=== PATIENT | female | born 2000 | race Caucasian/White ===

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

== ENCOUNTER 2024-02-02 11:25 | Outpatient (AMB) | payer OTHER, MEDICAID, SELFPAY ==
[2024-02-02 11:32] VITALS: BP 118/66; PULSE 92; TEMP 36.7; O2SAT 100; BMI 26.8
--- NOTE | 2024-02-02 11:32 | MHC.OFFWIV ---
Intake Vital Signs 02/02/24 11:32 Height 5 ft 4 in Weight 156 lb 2 oz BMI 26.8 BP 118/66 Blood Pressure Location Rt brachial Position Sitting Pulse 92 Pulse Source Pulse Oximeter Temp 98.1 F Temp Source Temporal Artery Scan Pulse Oximetry (%) 100 Oxygen Delivery Method Room Air Intake Visit Reasons: EP Flu like symptoms(masked) Intake Note: Pt presents to the office today for c/o flu like symptoms that started 3 days ago. Allergies Cephalosporins [CEPHALOSPORINS] Allergy (Unknown, Unverified 02/02/24 11:35) HIVES HPI HPI Comments History of Present Illness Details She presents with flu like symptoms Ongoing x 3 days She states subjective fever/chills + body aches, ST, cough Chest wall ache with coughing; no phlegm She said minimal congestion without ear pain No covid test taken She has taken dayquil, nyquil, cough medicine, cough drops, ibuprofen PFSH Medical History No known health problems Review of Systems Const Reports chills, Reports fatigue and Reports fever(s) ENT Reports nasal discharge Card Denies chest pain and Denies dyspnea Resp Reports cough and Denies dyspnea GI Denies abdominal pain and Denies vomiting Endo Reports fatigue Physical Exam Vital Signs: Last Vital Signs Temp 98.1 F 02/02/24 11:32 Pulse 92 02/02/24 11:32 BP 118/66 02/02/24 11:32 Pulse Ox 100 02/02/24 11:32 Oxygen Delivery Method Room Air 02/02/24 11:32 BMI result Body Mass Index 26.8 General: Non-toxic, NAD. Speaking full sentences. Skin: Warm dry throughout Eye: EOMI HENT: Airway patent. Uvula midline. No pharyngeal erythema or edema. 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 + rhinorrhea Bilateral canals clear. TM non-erythematous, non-bulging. No TM perforation or hemotympanum noted. Respiratory: CTA bilaterally. No wheezes, rales or rhonchi Cardiac: RRR. No murmur MSK: Full ROM extremities. Neurology: A/O. No aphasia or facial droop. Gait without abnormality Psych: Good mood and affect Assessment & Plan Assessment & Plan (1) Influenza-like illness: Code(s): J11.1 - Influenza due to unidentified influenza virus with other respiratory manifestations Plan: Patient seen and evaluated. Vitals stable Influenza/rsv/covid obtained Symptomatic management Work note given Patient gave verbal understanding and had no additional questions or concerns at time of discharge All questions answered Orders: Orders SARS-CoV2/FLU/RSV Today J11.1 - Influenza due to unidentified influenza virus with other respiratory manifestations Coding Level of Care Code Est Pt Level 3 (93320) Diagnoses Influenza-like illness J11.1
== END 2024-02-02 12:18 | disposition home or self-care (01) ==
PROVIDERS: PCP Hospitalist; Visit Provider Physician Assistant
DX: J11.1 Influenza due to unidentified influenza virus with other respiratory manifestations (principal)
CPT/HCPCS: 99213

== ENCOUNTER 2024-02-02 14:34 | Outpatient (REF) | payer OTHER, MEDICAID, SELFPAY ==
[2024-02-02 15:20] LABS: Influenza A PCR POSITIVE (Negative); Influenza B PCR NEGATIVE (Negative); Resp Syncy Virus RNA Qual PCR NEGATIVE (Negative); SARS COV2 PCR INHOUSE NEGATIVE (Negative)
== END 2024-02-02 14:35 | disposition home or self-care (01) ==
LOC: HO.LNP 14:34
PROVIDERS: Visit Provider Physician Assistant
DX: Z11.52 Encounter for screening for COVID-19 (principal); J11.1 Influenza due to unidentified influenza virus with other respiratory manifestations
CPT/HCPCS: 0241U

== ENCOUNTER 2025-06-19 11:17 | Outpatient (AMB) | payer OTHER, MEDICAID, SELFPAY ==
--- NOTE | 2025-06-19 11:48 | AM.OFFWIN_ITS ---
Intake Vital Signs 06/19/25 11:49 Height 5 ft 1 in Weight 191 lb BMI 36.1 BP 104/60 Blood Pressure Location Lt brachial Position Sitting Pulse 80 Pulse Source Pulse Oximeter Temp 98.5 F Temp Source Oral Pulse Oximetry (%) 98 Oxygen Delivery Method Room Air Intake Visit Reasons: EP-lt leg pain Intake Note: pt presents with left leg pain worsening with activity, states burning/cold and shocking pain starts from left anterior hip down to left ankle that is worse at the left knee, tight calf feeling- expresses concern for pinched nerve Patient : Yes Allergies Cephalosporins (CEPHALOSPORINS) Allergy (Unknown, Verified 06/19/25 11:49) HIVES Do you need a note to return to daycare/school/sports/work: Yes HPI HPI Comments History of Present Illness Details This is a 25 year old female, currently 25 weeks gestation presenting for evalaution of left leg pain that she has had for the past 5 weeks. The patient states that she has pain in her left lateral thigh that radiates to her left knee and her left calf. Patient describes the pain as a shooting sensation for which she has not taken any [id number] medications. Patient denies having any chest pain, cough or shortness of breath. She describes her pain as ?an icy hot pain?. Patient saw her primary care physician who was going to schedule physical therapy evaluation for her. Patient has not yet had this intake scheduled. She denies having any back pain, urinary frequency or dysuria. [facility], [facility] Medical History No known health problems Review of Systems Const All systems reviewed & are unremarkable except as noted in HPI and below Denies body aches, Denies chills, Denies fatigue and Denies fever(s) Card Denies chest pain and Denies dyspnea Resp Denies cough, Denies hemoptysis and Denies dyspnea Denies dysuria and Denies urinary urgency Musc Denies numbness, Reports radiating pain into limb (LLE) and Denies tingling Skin/Breast Reports system reviewed and no additional complaints, except as documented Neuro Reports no additional complaints, Denies numbness and Denies tingling Psych Reports no additional complaints Endo Reports no additional complaints and Denies fatigue Aller/Immun Reports no additional complaints Physical Exam Vital Signs: Last Vital Signs Temp 98.5 F 06/19/25 11:49 Pulse 80 06/19/25 11:49 BP 104/60 06/19/25 11:49 Pulse Ox 98 06/19/25 11:49 Oxygen Delivery Method Room Air 06/19/25 11:49 BMI result Body Mass Index 36.1 Const General: cooperative, healthy appearing (gravid), comfortable, well developed, alert, awake and Physically active; No acute distress Nutritional Appearance: other (gravid) Orientation/consciousness: patient oriented x3 Limitations: no limitations General: Yes no CVA tenderness Back/Spine/Pelvis Back: no CVA tenderness Thoracic/Lumbar Spine: thoracic and lumbar spine normal to inspection, thoraco- lumbar ROM normal, No paraspinal muscle tenderness, No thoracic spinal tenderness, No lumbar spinal tenderness and No straight leg raise positive Sacroiliac joints: bilaterally nontender Skin General skin exam: no rashes or lesions noted Neuro General: patient oriented x3, gait normal, tone normal, moves all extremities and Normal light touch and pain sensation Cognition (Neuro): normal cognition Gait exam (Neuro): Normal gait present Motor exam (neuro): 5/5 motor strength present throughout (lower extremities bilaterally) Extrem Right lower extremity: normal to inspection, full ROM, no joint enlargement, hip/thigh Details: normal to inspection and abnormal to inspection; no tendernes s, no swelling and no deformity and lower leg Details: normal to inspection; no erythema, no tenderness, no pitting edema and no non-pitting edema Left lower extremity: normal to inspection, full ROM, hip/thigh Details: tenderness Location: of the proximal upper leg Location: laterally and normal ROM; no deformity, knee Details: normal to inspection, normal ROM and knee lig ament exam normal; no tenderness, no swelling, no deformity and no unusual warmth, lower leg Details: normal to inspection and tenderness Location: of the posterior calf; not of the proximal tibia, not of the proximal fibula and not of the midshaft tibia; no erythema and no deformity and ankle Details: normal to inspection and no edema; no swelling; no edema Psych Appearance: grossly normal Mental Status: mental status grossly normal Insight: Good insight present (Psych) Judgement: Good judgement present (Psych) Assessment & Plan Assessment & Plan (1) Lumbar radiculopathy: Comment: Patient's symptoms most likely related to a left lumbar radiculopathy however given her gravid state and left calf pain, a DVT can not be exclusively ruled out. Venous duplex ultrasound imaging of the left lower extremity will be obtained. Patient is encouraged to follow up with her primary care provider regarding the referral for physical therapy; Tylenol OTC as needed. Code(s): M54.16 - Radiculopathy, lumbar region Plan: Stat duplex US of LLE, Tylenol as needed for discomfort, PT as ordered by PCP. Orders: Orders US venous duplex LE LT Today M79.662 - Pain in left lower leg Medications: Discontinued oseltamivir (Tamiflu) Discontinued Reason: Patient Completed Course 75 mg PO BID 5 days 10 caps 0RF J10.1 - Influenza due to other identified influenza virus with other respiratory manifestations Coding Level of Care Code Est Pt Level 3 (61656) Diagnoses Lumbar radiculopathy M54.16 Time Spent (min) 25
[2025-06-19 11:49] VITALS: BP 104/60; PULSE 80; TEMP 36.9; O2SAT 98; BMI 36.1
--- OUTSIDE RECORDS SUMMARY | 2025-06-19 12:11 | XMS_ITS | Encounter Summary ---
Author Organization [facility] Address [address] [place] [id number] Phone Care Team Providers Care Medical Record Consultant Name Role Phone Babita Botello MD Primary Care Provider [phone] Encounter Details Date Type Department Care Team (Late st Contact Info) Description 08/12/2010 Documentation EM Family Medicine [address] [place] [address] Family Medicine, Physician [address] [place], [place] [phone] Social History Tobacco Use Types Packs/Day Years Used Date Smoking Tobacco: Never Assessed Comments Unknown Sex and Gender Information Value Date Recorded Sex Assigned at Not on file Legal Sex Female 5:11 PM EDT Gender Identity Not on file Sexual Orientation Not on file documented as of this encounter Plan of Treatment Not on file documented as of this encounter Visit Diagnoses Not on filedocumented in this encounter Care Teams Medical Record Consultant Relationship Specialty Start Date End Date Babita Botello MD [address] [place] [address] HARSHA Ortega [address] PCP - General 06/04/17 12/03/22 documented as of this encounter
--- OUTSIDE RECORDS SUMMARY | 2025-06-19 12:11 | XMS_ITS | Clinical Summary ---
Author Organization [facility] Address [address] [place] [address] Phone Care Team Providers Care Yarn Handler Name Role Phone Physician, No Pcp Primary Care Provider Unavaila ble Allergies Active Allergy Reactions Criticality Noted Date Comments Cephalosporins Hives 12/19/2024 Social History Tobacco Use Types Packs/Day Years Used Date Smoking Tobacco: Never Smokeless Tobacco: Never Tobacco Cessation:Counseling Given: Not Answered Alcohol Use Standard Drinks/Week Comments Not Currently 0 (1 standard drink = 0.6 oz pur e alcohol) Comments Unknown Sex and Gender Information Value Date Recorded Sex Assigned at Female 12/19/2024 4:17 PM EST Legal Sex Female 3:09 PM EST Gender Identity Female 12/19/2024 4:17 PM EST Sexual Orientation Straight 12/19/2024 4: 17 PM EST Obstetrics History Last Filed Vital Signs Vital Sign Reading Time Taken Comments Blood Pressure 120/64 12/19/2024 3:16 PM EST Pulse 61 12/19/2024 3:16 PM EST Temperature 36.7 C (98.1 F) 12/19/2024 3:16 PM EST Respiratory Rate 18 12/19/2024 3:16 PM EST Oxygen Saturation 97% 12/19/2024 3:16 PM EST Inhaled Oxygen Concentration - - Weight 70.3 kg (155 lb) 12/19/2024 3:16 PM EST Height 154.9 cm (5' 1 ) 12/19/2024 3:16 PM EST Body Mass Index 29.29 12/19/2024 3:16 PM EST Plan of Treatment Health Maintenance Due Date Last Done Comments Gonorrhea/Chlamydia Screening 2002 Meningococcal B Vaccine (1 of 2 - Standard) 2018 Cervical Cancer Screening: Pap Smear 2023 DTaP,Tdap,and Td Vaccines (7 - Td or Tdap) 01/13/2024 01/12/2014, 02/18/2006, 06/05/2003, Additional history exists COVID-19 Vaccine ( season) 2024 Depression Screening 10/25/2024 HIV Screening 12/20/2024 Hepatitis C Screening 12/20/2024 Social Influencers of Health Screening 12/20/2024 Influenza Vaccine (#1) 2025 9, 06/21/2017, 08/22/2014, Additional history exists Hepatitis B Vaccines Completed 01/18/2003, 2002, 2002 HIB Vaccines Completed 06/05/2003, 08/25, 2002, Additional history exists IPV Vaccines Completed 02/18/2006, 05/25, 2002, Additional history exists MMR Vaccines Completed 02/18/2006, 06/05/2003 Varicella Vaccines Completed 05/05/2007, 05/29/2004 HPV Vaccines Completed 03/03/2016, 12/25, 01/12/2014 Hepatitis A Vaccines Completed 03/03/2016, 01/22/20 15 Meningococcal ACWY Vaccine Completed 10/28/2018, Pneumococcal Vaccine: Pediatrics (0 to 5 Years) and At-Risk Patients (6 to 49 Years) Aged Out No longer eligible based on patient's age to complete this topic RSV Immunization Patients Under 20 months Aged Out No longer eligible based on patient's age to complete this topic Insurance [facility] [place] [facility] [address] [place] [address] Care Teams Yarn Handler Relationship Specialty Start Date End Date Physician, No Pcp PCP - General 12/19/24
--- OUTSIDE RECORDS SUMMARY | 2025-06-19 12:11 | XMS_ITS | Encounter Summary ---
Author Organization [facility] Address [address] [place] [address] Phone Care Team Providers Care Rn Pain Management Name Role Phone Babita Botello MD Primary Care Provider [phone] Encounter Details Date Type Department Care Team (Late st Contact Info) Description 06/10/2017 Conversion Encounter [facility] [address] [place], [place] [phone] Social History Tobacco Use Types Packs/Day Years [...] on filedocumented in this encounter Care Teams Rn Pain Management Relationship Specialty Start Date End Date Babita Botello MD [address] [facility] [address] PCP - General 06/04/17 12/03/22 documented as of this encounter
--- OUTSIDE RECORDS SUMMARY | 2025-06-19 12:11 | XMS_ITS | Encounter Summary ---
Author Organization [facility] Address [address] [place] [phone] Phone Care Team Providers Care Bus Driver/Monitor Name Role Phone Babita Botello MD Primary Care Provider [phone] Encounter Details Date Type Department Care Team (Late st Contact Info) Description 04/29/2017 Documentation EM Family Medicine [address] [place] [address] Family Medicine, Physician [address] [place], [place] [phone] Social History Tobacco Use Types Packs/Day Years [...] on filedocumented in this encounter Care Teams Bus Driver/Monitor Relationship Specialty Start Date End Date Babita Botello MD [address] [place] [address] HARSHA Ortega [id number] PCP - General 06/04/17 12/03/22 documented as of this encounter
--- OUTSIDE RECORDS SUMMARY | 2025-06-19 12:11 | XMS_ITS | Encounter Summary ---
Author Organization [facility] Address [address] [place] [address] Phone Care Team Providers Care Gericare Aide Name Role Phone Babita Botello MD Primary Care Provider [phone] Encounter Details Date Type Department Care Team (Late st Contact Info) Description 02/15/2017 Documentation EM Family Medicine [address] [place] [address] Family Medicine, Physician [address] [place], [place] [phone] Social History Tobacco Use Types Packs/Day Years [...] on filedocumented in this encounter Care Teams Gericare Aide Relationship Specialty Start Date End Date Babita Botello MD [address] [place] [address] HARSHA Ortega [address] PCP - General 06/04/17 12/03/22 documented as of this encounter
--- OUTSIDE RECORDS SUMMARY | 2025-06-19 12:11 | XMS_ITS | Clinical Summary ---
Author Organization [facility] Address [address] [facility] [address] [place] [address] Phone Care Team Providers Care Catering Chef Name Role Phone Pcp, Unknown Primary Care Provider Unavailabl e Allergies No known active allergies Medications amoxicillin (AMOXIL) 500 MG capsule Take 1 capsule (500 mg total) by mouth 2 (two) times a day. 20 capsule 02/19/2022 Active Active Problems No known active problems Social History Tobacco Use Types Packs/Day Years Used Date Smoking Tobacco: Never Assessed Education Answer Date Recorded Are you interested in more education? Not on clint e 02/19/2023 Are you concerned about learning? Not on file 02/19/2023 No 02/19/2023 No 02/19/2023 Digital Access Answer Date Recorded No 03/23/2023 No 03/23/2023 Reliable internet access at home? Not on file 03/23/2023 Device with a working camera? Not on file Comments Unknown Sex and Gender Information Value Date Recorded Sex Assigned at Female 02/19/2022 4:31 PM EDT Legal Sex Female 11:27 AM EST Gender Identity Female 02/19/2022 4:31 PM EDT Sexual Orientation Not on file Last Filed Vital Signs Vital Sign Reading Time Taken Comments Blood Pressure 110/72 02/19/2022 8:50 PM EDT Pulse 85 02/19/2022 8:50 PM EDT Temperature 36.6 C (97.9 F) 02/19/2022 4:29 PM EDT Respiratory Rate 18 02/19/2022 8:50 PM EDT Oxygen Saturation 98% 02/19/2022 8:50 PM EDT Inhaled Oxygen Concentration - - Weight 84.8 kg (187 lb) 02/19/2022 4:29 PM EDT Height 154.9 cm (5' 1 ) 02/19/2022 4:29 PM EDT Body Mass Index 35.33 02/19/2022 4:29 PM EDT Plan of Treatment Not on file Medical Devices Not on file Insurance [employer] O POS EPO A[employer] O [place] [address] [place], [place] [address]O POS EPO O POS EPO AENA O POS EPO [employer] O POS EPO A[employer] O POS EPO O POS EPO AET[employer] O [place] [address] [place], [place] [address]O [place] [address] [place], [place] [address]O [facility] O POS EPO AETNA O [facility] [place] [address] [place], [place] [address]O POS EPO Care Teams Catering Chef Relationship Specialty Start Date End Date Pcp, Unknown PCP - General 02/19/22 Additional Source Comments The information contained in this document represents components of the legal health record. It is not the complete legal health record.[facility]
--- OUTSIDE RECORDS SUMMARY | 2025-06-19 12:11 | XMS_ITS | Encounter Summary ---
Author Organization [facility] Address [address] [place] [address] Phone Care Team Providers Care Ordnance Keeper Name Role Phone Pcp, Unknown Primary Care Provider Unavailabl e Encounter Details Date Type Department Care Team (Latest Contact Info) Description 12/06/2018 Transcribe Orders [facility] [address] [place] [address] [place] [address] Mili Cordova, JONATHAN [address] [place] [address] Eating disorder, unspecified (Primary Dx) Social History Tobacco Use Types Packs/Day Years Used Date Smoking Tobacco: Never Assessed Comments Unknown Sex and Gender Information Value Date Recorded Sex Assigned at Female 02/19/2022 4:31 PM EDT Legal Sex Female 11:27 AM EST Gender Identity Female 02/19/2022 4:31 PM EDT Sexual Orientation Not on file documented as of this encounter Plan of Treatment Not on file documented as of this encounter Results * (ABNORMAL) Urine culture (12/06/2018 10:02 AM EST) Specimen Source/ Description URINE CLEAN CATCH URINE [facility] Special Requests None [facility] GRAM STAIN NO ORGANISMS SEEN [facility] Culture/Test 10,000 to 100,000 colony forming units per ml MIXED KYLEE (3 OR MORE COLONY TYPES) Culture indicates contamination . Please resubmit if necessary.(A) [facility] Report Status 12/07/2018 FINAL [facility] Urine (Urine) 12/06/2018 10: 02 AM EST 12/06/2018 10:14 AM EST Mili Cordova NP MICROBIOLOGY - GENERA L ORDERABLES Final Result Performing Organization Address [facility] Co de Phone Number [address] [address] * Zinc (12/06/2018 10:02 AM EST) ZINC 0.74 0.66 - 1.10 mcg/mL [facility] Comment: (NOTE) ADDITIONAL INFORMATION This test was developed and its performance characteristics determined by [facility] in a manner consistent with CLIA requirements. This test has not been cleared or approved by the U.S. Food and Drug Administration. Blood 12/06/2018 10:0 2 AM EST 12/06/2018 10:13 AM EST Mili Cordova NP LAB BLOOD ORDERABLES Final Result Performing Organization Address [facility] de Phone Number [facility] [address] [place] [address] * Vitamin B12 (12/06/2018 10:02 AM EST) VITAMIN B12 392 232 - 1,245 pg/mL [facility] Blood 12/06/2018 10:0 2 AM EST 12/06/2018 10:13 AM EST Mili Cordova NP LAB BLOOD ORDERABLES Final Result Performing Organization Address [facility] Co de Phone Number [address] [address] * TSH (12/06/2018 10:02 AM EST) TSH 1.97 0.27 - 4.20 uIU/mL [facility] Blood 12/06/2018 10:0 2 AM EST 12/06/2018 10:13 AM EST Mili Cordova NP LAB BLOOD ORDERABLES Final Result Performing Organization Address [facility] Co de Phone Number [address] [address] * Phosphorus (12/06/2018 10:02 AM EST) PHOSPHORUS 3.2 2.7 - 4.5 mg/dL [facility] Blood 12/06/2018 10:0 2 AM EST 12/06/2018 10:13 AM EST Mili Cordova NP LAB BLOOD ORDERABLES Final Result Performing Organization Address [facility] Phone Number [address] [address] * Magnesium (12/06/2018 10:02 AM EST) MAGNESIUM 2.3 1.6 - 2.6 mg/dL [facility] Blood 12/06/2018 10:0 2 AM EST 12/06/2018 10:13 AM EST Mili Cordova NP LAB BLOOD ORDERABLES Final Result Performing Organization Address [facility] de Phone Number [address] [address] * (ABNORMAL) Lipid panel (12/06/2018 10:02 AM EST) HDL 44 mg/dL [facility] Comment: Interpretation <40 mg/dL: Low HDL cholesterol (major risk factor for CHD) Greater than or equal to 60 mg/dL: High HDL cholesterol ( negative risk factor for CHD) HDL - cholesterol is affected by a number of factors, e.g. smoking, excerise, hormones, sex and age. CHOLESTEROL 132 0 - 169 mg/dL [facility] Comment: Pediatric Reference Ranges for 2 to 18 years Acceptable: Less than 170 mg/dL Borderline: 170 - 199 mg/dL High: Greater than or equal to 200 mg/dL TRIGLYCERIDES 126 30 - 160 mg/dL [facility] LDL 63 50 - 129 mg/dL [facility] Comment: LDL levels in terms of risk for coronary heart disease: <100 mg/dL: Optimal 100-129 mg/dL: Near or above optimal 130-159 mg/dL: Borderline high 160-189 mg/dL: High >190 mg/dL: Very High CARDIAC RISK RATIO 3.0(L) 3.3 - 4.4 [facility] Blood 12/06/2018 10:0 2 AM EST 12/06/2018 10:13 AM EST Mili Cordova NP LAB BLOOD ORDERABLES Final Result Performing Organization Address [facility]/ZIP Co de Phone Number [address] [address] * Lipase (12/06/2018 10:02 AM EST) LIPASE 21 16 - 63 U/L [facility] Blood 12/06/2018 10:0 2 AM EST 12/06/2018 10:13 AM EST Mili Cordova NP LAB BLOOD ORDERABLES Final Result Performing Organization Address [facility] Co de Phone Number [address] [address] * (ABNORMAL) 25-OH vitamin D (12/06/2018 10:02 AM EST) 25 OH VIT D (TOTAL) 28(L) 30 - 60 ng/mL [facility] Blood 12/06/2018 10:0 2 AM EST 12/06/2018 10:13 AM EST Mili Cordova NP LAB BLOOD ORDERABLES Final Result Performing Organization Address [facility]/ZIP Co de Phone Number [address] [address] * Amylase (12/06/2018 10:02 AM EST) AMYLASE 82 28 - 100 U/L [facility] Blood 12/06/2018 10:0 2 AM EST 12/06/2018 10:13 AM EST Mili Cordova ADMISSION SPECIALIST LAB BLOOD ORDERABLES Final Result [address] [address] * Bilirubin, direct (12/06/2018 10:02 AM EST) DIRECT BILIRUBIN <0.2 0 - 0.3 mg/dL [facility] Blood 12/06/2018 10:0 2 AM EST 12/06/2018 10:13 AM EST Mili Cordova ADMISSION SPECIALIST LAB BLOOD ORDERABLES Final Result Performing Organization Address City/[facility]/ZIP Co de Phone Number [address] [address] * CBC and differential (12/06/2018 10:02 AM EST) WBC 5.59 3.40 - 11.20 K/uL [facility] RBC 4.12 3.80 - 4.80 M/uL [facility] HGB 12.7 12.0 - 15.0 g/dL [facility] HCT 37.7 36.0 - 46.0 % [facility] PLT 260 130 - 400 K/uL [facility] MCV 91.5 79.0 - 98.0 fL [facility] MCH 30.8 25.0 - 35.0 pg [facility] MCHC 33.7 31.0 - 37.0 g/dL [facility] RDW 12.5 10.8 - 14.6 % [facility] MPV 11.1 9.4 - 12.4 fl [facility] NRBC 0.00 0.00 /100 WBCs [facility] ABSOLUTE NRBC 0.00 0.00 K/uL [facility] DIFF METHOD Auto [facility] NEUTS 64.1 45.30 - 77.70 % [facility] LYMPHS 26.1 12.30 - 39.70 % [facility] MONOS 8.4 4.10 - 12.80 % [facility] EOS 0.7 0 - 7.2 % [facility] BASOS 0.5 0 - 2.80 % [facility] Granulocytes, immature (%) 0.2 0.0 - 0.9 % [facility] ABSOLUTE NEUTS 3.58 1.40 - 7.70 K/uL [facility] ABSOLUTE LYMPHS 1.46 0.60 - 3.20 K/uL [facility] ABSOLUTE MONOS 0.47 0.11 - 0.59 K/uL [facility] ABSOLUTE EOS 0.04 0.01 - 0.50 K/uL [facility] ABSOLUTE BASOS 0.03 0.00 - 0.08 K/uL [facility] Granulocytes, immature 0.01 0.00 - 0.05 K/uL [facility] Blood 12/06/2018 10:0 2 AM EST 12/06/2018 10:13 AM EST us Mili Cordova NP LAB BLOOD ORDERABLES Final Result Performing Organization Address City/State/[facility] Co de Phone Number [address] [address] * Comprehensive metabolic panel (12/06/2018 10:02 AM EST) SODIUM 140 133 - 146 mmol/L [facility] POTASSIUM 4.3 3.3 - 5.1 mmol/L [facility] CHLORIDE 103 96 - 108 mmol/L [facility] CO2 24 21 - 35 mmol/L [facility] BUN 13 6 - 19 mg/dL [facility] CREATININE 0.80 0.5 - 1.5 mg/dL [facility] GLUCOSE 85 70 - 99 mg/dL [facility] ALBUMIN 4.0 3.9 - 4.8 g/dL [facility] TOTAL PROTEIN 7.2 6.5 - 8.0 g/dL [facility] CALCIUM 9.2 8.4 - 10.3 mg/dL [facility] ALKALINE PHOSPHATASE 64 39 - 117 U/L [facility] TOTAL BILIRUBIN 0.4 0.0 - 1.2 mg/dL [facility] AST 16 0 - 37 U/L [facility] ALT 11 0 - 40 U/L [facility] GLOBULIN 3.2 1 - 4.8 g/dL [facility] EGFR Estimated GFR not calculated for patients <18 years old. mL/min/1. 73m2 [facility] ANION GAP 17 10 - 20 mmol/L [facility] Blood 12/06/2018 10:0 2 AM EST 12/06/2018 10:13 AM EST Mili Cordova NP LAB BLOOD ORDERABLES Final Result Performing Organization Address [facility] Co de Phone Number [address] [address] * Folate (12/06/2018 10:02 AM EST) FOLIC ACID 12.3 4.2 - 19.9 ng/mL [facility] Blood 12/06/2018 10:0 2 AM EST 12/06/2018 10:13 AM EST Mili Cordova NP LAB BLOOD ORDERABLES Final Result Performing Organization Address [facility] Co de Phone Number [address] [address] * (ABNORMAL) Ferritin (12/06/2018 10:02 AM EST) FERRITIN 160(H) 13 - 150 ug/L [facility] Blood 12/06/2018 10:0 2 AM EST 12/06/2018 10:13 AM EST Mili oCrdova NP LAB BLOOD ORDERABLES Final Result Performing Organization Address [facility]/ZIP Co de Phone Number [address] [address] * HCG (quantitative blood), (12/06/2018 10:02 AM EST) HCG BETA <0.1 mIU/mL [facility] Comment: Interpretation: FEMALE: Negative: Less than or equal to 1 mIU/mL. 4 Weeks Post Conception: 9.5 - 750 mIU/mL. 12 Weeks Post Conception: [id number] - [address] mIU/mL. Blood 12/06/2018 10:0 2 AM EST 12/06/2018 10:13 AM EST Mili Cordova ADMISSION SPECIALIST LAB BLOOD ORDERABLES Final Result Performing Organization Address City/[facility] Co de Phone Number [address] [address] * Iron (12/06/2018 10:02 AM EST) IRON 140 30 - 160 ug/dL [facility] Blood 12/06/2018 10:0 2 AM EST 12/06/2018 10:13 AM EST Mili Cordova ADMISSION SPECIALIST LAB BLOOD ORDERABLES Final Result Performing Organization Address [facility] Co de Phone Number [address] [address] documented in this encounter Visit Diagnoses Diagnosis Eating disorder, unspecified- Primary documented in this encounter Additional Health Concerns Infection Onset Date Last Indicated Resolved Time CoV-Risk 02/19/2022 02/19/2022 03/02/2022 1:24 AM EDT documented as of this encounter Care Teams Ordnance Keeper Relationship Specialty Start Date End Date Pcp, Unknown PCP - General 02/19/22 documented as of this encounter Additional Source Comments The information contained in this document represents components of the legal health record. It is not the complete legal health record.[facility]
--- OUTSIDE RECORDS SUMMARY | 2025-06-19 12:12 | XMS_ITS | Clinical Summary ---
Author Organization [facility] Address [address] [place] [phone] Phone Care Team Providers Care Stock Wetter Name Role Phone Unavailable Primary Care Provider Unavailabl e Allergies Active Allergy Reactions Criticality Noted Date Comments Cefuroxime Rash Low Medications Vitamin D, Cholecalciferol , 1000 units capsule TK 1 C PO D WF 1 8 Active traZODone 50 MG tablet TK 1 T PO D HS 1 8 Active melatonin (KP MELATONIN) tablet Take by mouth. 2 Active ISIBLOOM 0.15-30 MG-MCG per tablet TK 1 T PO D TK 21 DAYS OF ACTIVE TS THEN SKIP PLACEBOS AND. START THE NEXT PACK 7 8 Active zinc sulfate 220 (50 Zn) MG capsule Take 220 mg by mouth once daily. 0 9 Active GAVILAX powder MIX 17 GRAMS WITH WATER AND DRINK TWICE DAILY 0 9 Active Multiple Vitamin (DAILY-FABI) tablet Take 1 tablet by mouth once daily. 3 9 Active STOOL SOFTENER 100 MG capsule TAKE 2 CAPSULES BY MOUTH EVERY DAY NEEDED FOR CONSTIPATION 0 9 Active Active Problems Problem Noted Date Diagnosed Date Major depressive disorder with single episode Overview (04/14/2019): Followed by Melinda Monson and referred back to Dr. Abilio Arriaga Obsessive compulsive disorder 04/14/2019 Disordered eating 12/05/2018 Overview (04/14/2019): Followed by adolescent medicine and Melinda Monson Self-injurious behavior 10/28/2018 Assessment & Plan (11/01/2018 3:02 PM EST): Discussed with patient and mom about new cutting simms; mom unaware but will be mindful and discuss with therapist; denis denies SI but discussed suggestions/recommendations for her Acne vulgaris 06/21/2017 Menorrhagia with irregular cycle 06/21/2017 Assessment & Plan (10/28/2018 2:37 PM EST): On ocps per [facility] for heavy bleeding and iron deficiency Other iron deficiency anemias 06/21/2017 Assessment & Plan (10/28/2018 2:47 PM EST): On ocps and was on iron and vitamin d Not eating well at all Last time checked was about 2 months ago and was fine Has f/u Wednesday with them and plans likely to recheck So I told her today probably ok off of the iron but use a mvi with iron Attention deficit hyperactiv ity disorder (ADHD), combined type 06/16/2012 Generalized anxiety disorder 02/06/2011 Assessment & Plan (10/28/2018 2:48 PM EST): Still taking trazodone and melatonin at night; no longer on bupropion or dexedrine Immunizations Immunization Administration Dates Next Due DTaP 5 02/18/2006, 3,2002,06/14,2002 HPV Vaccine 9 Valent 03/03/2016 HPV, Quadrivalent 01/21/2015,01/12/2014 Hep A, ped/adol 03/03/2016,01/21/2015 Hep B, ped/adol 01/18/2003,2002,2002 Hib (PRP-T) 06/05/2003, 2,2002,04/11 IPV 02/18/2006, 3,2002,04/11 Influenza Split 06/16/2012 Influenza, injectable, quadrivalent 08/22/2014 Influenza, injectable, quadr ivalent, preservative free 10/28/2018,06/21/2017 Influenza, injectable, trivalent 07/26/2009,09/25 MMR 02/18/2006,06/05/2003 Meningococcal Conj (Menactra) MCV4P 10/28/2018,0 01/12/2014 Tdap 01/12/2014 Varicella 05/05/2007,05/29/2004 Family History Relation Name Status Comments Brother Ozzie Rivas Alive Brother: Bipo lar disorder, Asthma,generalized anxiety, Alive and well, Bipolar disorder Father Father: Hyperli pidemia,GERD, Heart disease Mother Alive Mother: Hypothy roidism,anemia Other Family history of Hyperlipidemia, Family history of Obesity Social History Tobacco Use Types Packs/Day Years Used Date Smoking Tobacco: Never Smokeless Tobacco: Never Tobacco Cessation:Counseling Given: Yes Comments:Never smoker Alcohol Use Standard Drinks/Week Comments No 0 (1 standard drink = 0.6 oz pur e alcohol) Hunger/Food Answer Date Recorded No 07/20/2020 Stable Housing Answer Date Recorded No 07/20/2020 Transportation Concerns Answer Date Rec orded No 07/20/2020 Hazards in Home Answer Date Recorded No 09/07/2020 Financing Utilities Answer Date Recorde d Yes 09/07/2020 Safety at Home Answer Date Recorded No 09/07/2020 Outside Support Answer Date Recorded No 09/07/2020 Understanding Health Concerns Answer Da te Recorded No 09/07/2020 Financing Health Concerns Answer Date R ecorded No 09/07/2020 Missing School or Work Answer Date Merlin rded No 09/07/2020 Comments Unknown Sex and Gender Information Value Date Recorded Sex Assigned at Not on file Legal Sex Female 5:11 PM EDT Gender Identity Not on file Sexual Orientation Not on file Last Filed Vital Signs Vital Sign Reading Time Taken Comments Blood Pressure 100/65 12/05/2018 2:25 PM EST Pulse 59 12/05/2018 2:25 PM EST Temperature 36.3 C (97.3 F) 12/05/2018 2:25 PM EST Respiratory Rate - - Oxygen Saturation - - Inhaled Oxygen Concentration - - Weight 73.4 kg (161 lb 12.8 oz) 12/05/2018 2:25 PM EST Height 153.7 cm (5' 0.5 ) 12/05/2018 2:25 PM EST Body Mass Index 31.08 12/05/2018 2:25 PM EST Plan of Treatment Health Maintenance Due Date Last Done Comments Men B Vaccine (1 of 2 - Standard) 2018 DTaP,Tdap,and Td Vaccines (7 - Td or Tdap) 01/13/2024 01/12/2014, 02/18/2006, 06/05/2003, Additional history exists COVID-19 Vaccine ( season) 2024 05/24/2021, 04/26/2021 Influenza Vaccines (#1) 2025 07/15/20 20, 10/28/2018, 06/21/2017, Additional history exists Hepatitis B Vaccines Completed 01/18/2003, 2002, 2002 HIB Vaccines Completed 06/05/2003, 08/25, 2002, Additional history exists IPV Vaccines Completed 02/18/2006, 05/25, 2002, Additional history exists MMR Vaccines Completed 02/18/2006, 06/05/2003 Varicella Vaccines Completed 05/05/2007, 05/29/2004 HPV Vaccines Completed 03/03/2016, 12/25, 01/12/2014 Hepatitis A Vaccines Completed 03/03/2016, 01/22/20 15 Meningococcal Vaccine Completed 10/28/2018, 014 Pneumococcal Vaccine Aged Out No long er eligible based on patient's age to complete this topic Procedures * Due to [place] [employer] law, this organization might not be sharing sensitive test results. Procedure Name Priority Date/Time Associated Diagnosis Comments CHLAMYDIA AND GONORRHEA, AMPLIFIED Routine 10/28/2018 3:23 PM EST Screening examination for bacterial and spirochetal disease from Last 3 Months or Most Recently Relevant to Health Maintenance Results * Due to [place] [employer] law, this organization might not be sharing sensitive test results. * Chlamydia and Gonorrhea, Amplified (10/28/2018 3:23 PM EST) Chlamydia Trachomatis, DNA Probe NEGATIVE (NEG) [facility] Comment: No Chlamydia Trachomatis RNA detected in this patient's sample (REFERENCE RANGE/NORMAL VALUE: NOT DETECTED) Note: This test uses speech scientist- mediated amplification method to detect rRNA from C. Trachomatis URINE GC AMP PROBE NEGATIVE (NEG) [facility] Comment: No Neisseria Gonorrhoeae RNA detected in this patient's sample (REFERENCE RANGE/NORMAL VALUE: NOT DETECTED) NOTE: This test uses speech scientist-mediated amplification method to detect rRNA from N.Gonorrhoeae. A negative result does not preclude infection. In the case of a negative urine result, testing of an endocervical(female) or urethral (male) specimen is recommended if there is high clinical suspicion of infection. Due to very high sensitivity of Nucleic Acid Amplification Test, false positive results may occur. Therefore, specimen handling is extremely important. In patients in whom the disease is unlikely, additional sample for testing should be considered after an initial positive result. The performance characteristics of this test have not been evaluated in children. The Aptima Combo2 assay is not intended for the evaluation of suspected sexual abuse or for other medico-legal indications. The ordering provider should assess if the patient had consensual sex without risk of sexual abuse. Consult the [facility] if needed. Contact phone number . Therapeutic failure or success cannot be determined with the Aptima Combo2 assay since nucleic acid may persist following appropriate antimicrobial therapy. The Centers for Disease Control and Prevention (CDC) recommends confirmatory retesting using culture or a different nucleic acid amplification test when positive results occur, if indicated. Testing performed or reported by [facility], a Service of [facility], [facility] [place] [address] [place] [id number] Digna Perrin MD, Cloth Bleaching Range Tender Urine 10/28/2018 3:23 PM EST 10/28/2018 9:49 PM EST us Babita Botello MD LAB MICROBIOLOGY - GENERAL ORD ERABLES Final Result [facility] from Last 3 Months or Most Recently Relevant to Health Maintenance
== END 2025-06-19 13:09 | disposition home or self-care (01) ==
PROVIDERS: PCP Hospitalist; Visit Provider Physician Assistant
DX: M54.16 Radiculopathy, lumbar region (principal)

== ENCOUNTER 2025-06-20 10:28 | Outpatient (REF) | payer OTHER, MEDICAID, SELFPAY ==
--- NOTE | ~2025-06-20 | US_ITS ---
EXAMINATION: US TRIPLEX LOWER EXTREMITY, LEFT CLINICAL INFORMATION: Pain, left lower extremity. COMPARISON: None available. TECHNIQUE: Color-flow triplex imaging with spectral analysis and compression Doppler were performed on the left lower extremity. FINDINGS: Respiratory variation, normal compression and augmented flow are demonstrated in the interrogated left common femoral vein, superficial femoral vein, profunda femoral vein, popliteal vein and midcalf peroneal and posterior tibial venous segments.. There is no Grissom's cyst. US/US venous duplex LE LT IMPRESSION: No acute deep venous thrombosis interrogated veins, left lower extremity. Negative for DVT. Electronically signed by: Jayce Donahue MD 06/20/2025 11:01 AM EDT
--- OUTSIDE RECORDS SUMMARY | 2025-06-20 11:20 | XMS_ITS | Clinical Summary ---
Author Organization [facility] Address [address] [place] [address] Phone Care Team Providers Care Riding Teacher Name Role Phone Pcp, Unknown Primary Care [...] O POS EPO [employer] O POS EPO [address] [place], [place] [address]O POS EPO O POS EPO [employer]ENA O POS EPO [employer] O POS EPO [employer] O POS EPO O POS EPO [employer] O POS EPO [address] [place], [place] [address]O [place] [address] [place], [place] [address]O [facility] O POS EPO AET[employer] [facility] [address] [place], [place] [address]O POS EPO Care Teams Riding Teacher Relationship Specialty Start Date End Date Pcp, Unknown PCP - General 02/19/22 Additional Source Comments The information contained in this document represents components of the legal health record. It is not the complete legal health record.[facility]
--- OUTSIDE RECORDS SUMMARY | 2025-06-20 11:20 | XMS_ITS | Encounter Summary ---
Author Organization [facility] Address [address] [place] [address] Phone Care Team Providers Care Assistant Reading Teacher Name Role Phone Babita Botello MD Primary Care Provider [phone] Encounter Details Date Type Department Care Team (Late st Contact Info) Description 06/10/2017 Conversion Encounter [facility] [address] [place], [place] [id number] Social History Tobacco Use Types Packs/Day Years [...] on filedocumented in this encounter Care Teams Assistant Reading Teacher Relationship Specialty Start Date End Date Babita Botello MD [address] [facility] [place] [address] PCP - General 06/04/17 12/03/22 documented as of this encounter
--- OUTSIDE RECORDS SUMMARY | 2025-06-20 11:20 | XMS_ITS | Encounter Summary ---
Author Organization [facility] Address [address] [place] [address] Phone Care Team Providers Care Financial Systems Manager Name Role Phone Pcp, Unknown Primary Care Provider Unavailabl e Encounter Details Date Type Department Care Team (Latest Contact Info) Description 12/06/2018 Transcribe Orders [facility] [address] [place] [address] [place] [address] Mili Cordova, JONATHAN [address] [place] [address] Eating disorder, unspecified (Primary Dx) Social History [...] Specimen Source/ Description URINE CLEAN CATCH URINE [facility] Special Requests None [facility] GRAM STAIN NO ORGANISMS SEEN [facility] Culture/Test 10,000 to 100,000 colony forming units per ml MIXED KYLEE (3 OR MORE COLONY TYPES) Culture indicates contamination . Please resubmit if necessary.(A) [facility] Report Status 12/07/2018 FINAL [facility] Urine (Urine) 12/06/2018 10: 02 AM EST 12/06/2018 10:14 AM EST Mili Cordova NP MICROBIOLOGY - GENERA L ORDERABLES Final Result Performing Organization Address [facility] Co de Phone Number [address] [address] * Zinc (12/06/2018 10:02 AM EST) ZINC 0.74 0.66 - 1.10 mcg/mL [facility] Comment: (NOTE) ADDITIONAL INFORMATION This test was developed and its performance characteristics determined by [facility] in a manner consistent with CLIA requirements. This test has not been cleared or approved by the U.S. Food and Drug Administration. Blood 12/06/2018 10:0 2 AM EST 12/06/2018 10:13 AM EST Mili Cordova NP LAB BLOOD ORDERABLES Final Result Performing Organization Address [facility] de Phone Number [facility] [address] [place] [address] * Vitamin B12 (12/06/2018 10:02 AM EST) VITAMIN B12 392 232 - 1,245 pg/mL [facility] Blood 12/06/2018 10:0 2 AM EST 12/06/2018 10:13 AM EST Mili Cordova NP LAB BLOOD ORDERABLES Final Result Performing Organization Address [facility] Co de Phone Number [address] [address] * TSH (12/06/2018 10:02 AM EST) TSH 1.97 0.27 - 4.20 uIU/mL [facility] Blood 12/06/2018 10:0 2 AM EST 12/06/2018 10:13 AM EST Mili Cordova NP LAB BLOOD ORDERABLES Final Result Performing Organization Address [facility] Co de Phone Number [address] [address] * Phosphorus (12/06/2018 10:02 AM EST) PHOSPHORUS 3.2 2.7 - 4.5 mg/dL [facility] Blood 12/06/2018 10:0 2 AM EST 12/06/2018 10:13 AM EST Mili Cordova NP LAB BLOOD ORDERABLES Final Result Performing Organization Address [facility] Phone Number [address] [address] * Magnesium (12/06/2018 10:02 AM EST) MAGNESIUM 2.3 1.6 - 2.6 mg/dL [facility] Blood 12/06/2018 10:0 2 AM EST 12/06/2018 10:13 AM EST Mili Cordova NP LAB BLOOD ORDERABLES Final Result Performing Organization Address [facility] de Phone Number [address] [address] * (ABNORMAL) Lipid panel (12/06/2018 10:02 AM EST) HDL 44 mg/dL [facility] Comment: Interpretation <40 mg/dL: Low HDL cholesterol (major risk factor for CHD) Greater than or equal to 60 mg/dL: High HDL cholesterol ( negative risk factor for CHD) HDL - cholesterol is affected by a number of factors, e.g. smoking, excerise, hormones, sex and age. CHOLESTEROL 132 0 - 169 mg/dL [facility] Comment: Pediatric Reference Ranges for 2 to 18 years Acceptable: Less than 170 mg/dL Borderline: 170 - 199 mg/dL High: Greater than or equal to 200 mg/dL TRIGLYCERIDES 126 30 - 160 mg/dL [facility] LDL 63 50 - 129 mg/dL [facility] Comment: LDL levels in terms of risk for coronary heart disease: <100 mg/dL: Optimal 100-129 mg/dL: Near or above optimal 130-159 mg/dL: Borderline high 160-189 mg/dL: High >190 mg/dL: Very High CARDIAC RISK RATIO 3.0(L) 3.3 - 4.4 C [facility] Blood 12/06/2018 10:0 2 AM EST 12/06/2018 10:13 AM EST Mili Cordova NP LAB BLOOD ORDERABLES Final Result Performing Organization Address [facility]/ZIP Co de Phone Number [address] [address] * Lipase (12/06/2018 10:02 AM EST) LIPASE 21 16 - 63 U/L [facility] Blood 12/06/2018 10:0 2 AM EST 12/06/2018 10:13 AM EST Mili Cordova NP LAB BLOOD ORDERABLES Final Result Performing Organization Address [facility] Co de Phone Number [address] [address] * (ABNORMAL) 25-OH vitamin D (12/06/2018 10:02 AM EST) 25 OH VIT D (TOTAL) 28(L) 30 - 60 ng/mL [facility] Blood 12/06/2018 10:0 2 AM EST 12/06/2018 10:13 AM EST Mili Cordova NP LAB BLOOD ORDERABLES Final Result Performing Organization Address [facility]/ZIP Co de Phone Number [address] [address] * Amylase (12/06/2018 10:02 AM EST) AMYLASE 82 28 - 100 U/L [facility] Blood 12/06/2018 10:0 2 AM EST 12/06/2018 10:13 AM EST Mili Cordova LABORATORY MACHINIST LAB BLOOD ORDERABLES Final Result [address] [address] * Bilirubin, direct (12/06/2018 10:02 AM EST) DIRECT BILIRUBIN <0.2 0 - 0.3 mg/dL [facility] Blood 12/06/2018 10:0 2 AM EST 12/06/2018 10:13 AM EST Mili Cordova LABORATORY MACHINIST LAB BLOOD ORDERABLES Final Result Performing Organization Address City/[facility]/ZIP Co de Phone Number [address] [address] * CBC and differential (12/06/2018 10:02 AM EST) WBC 5.59 3.40 - 11.20 K/uL [facility] RBC 4.12 3.80 - 4.80 M/uL [facility] HGB 12.7 12.0 - 15.0 g/dL [facility] HCT 37.7 36.0 - 46.0 % [facility] PLT 260 130 - 400 K/uL [facility] MCV 91.5 79.0 - 98.0 fL [facility] MCH 30.8 25.0 - 35.0 pg [facility] MCHC 33.7 31.0 - 37.0 g/dL [facility] RDW 12.5 10.8 - 14.6 % [facility] MPV 11.1 9.4 - 12.4 fl [facility] NRBC 0.00 0.00 /100 WBCs [facility] ABSOLUTE NRBC 0.00 0.00 K/uL [facility] DIFF METHOD Auto [facility] NEUTS 64.1 45.30 - 77.70 % [facility] LYMPHS 26.1 12.30 - 39.70 % [facility] MONOS 8.4 4.10 - 12.80 % [facility] EOS 0.7 0 - 7.2 % [facility] BASOS 0.5 0 - 2.80 % [facility] Granulocytes, immature (%) 0.2 0.0 - 0.9 % [facility] ABSOLUTE NEUTS 3.58 1.40 - 7.70 K/uL [facility] ABSOLUTE LYMPHS 1.46 0.60 - 3.20 K/uL [facility] ABSOLUTE MONOS 0.47 0.11 - 0.59 K/uL [facility] ABSOLUTE EOS 0.04 0.01 - 0.50 K/uL [facility] ABSOLUTE BASOS 0.03 0.00 - 0.08 K/uL [facility] Granulocytes, immature 0.01 0.00 - 0.05 K/uL [facility] Blood 12/06/2018 10:0 2 AM EST 12/06/2018 10:13 AM EST us Mili Cordova NP LAB BLOOD ORDERABLES Final Result Performing Organization Address City/State/[facility] Co de Phone Number [address] [address] * Comprehensive metabolic panel (12/06/2018 10:02 AM EST) SODIUM 140 133 - 146 mmol/L [facility] POTASSIUM 4.3 3.3 - 5.1 mmol/L [facility] CHLORIDE 103 96 - 108 mmol/L [facility] CO2 24 21 - 35 mmol/L [facility] BUN 13 6 - 19 mg/dL [facility] CREATININE 0.80 0.5 - 1.5 mg/dL [facility] GLUCOSE 85 70 - 99 mg/dL [facility] ALBUMIN 4.0 3.9 - 4.8 g/dL [facility] TOTAL PROTEIN 7.2 6.5 - 8.0 g/dL [facility] CALCIUM 9.2 8.4 - 10.3 mg/dL [facility] ALKALINE PHOSPHATASE 64 39 - 117 U/L [facility] TOTAL BILIRUBIN 0.4 0.0 - 1.2 mg/dL [facility] AST 16 0 - 37 U/L [facility] ALT 11 0 - 40 U/L [facility] GLOBULIN 3.2 1 - 4.8 g/dL [facility] EGFR Estimated GFR not calculated for patients <18 years old. mL/min/1. 73m2 [facility] ANION GAP 17 10 - 20 mmol/L [facility] Blood 12/06/2018 10:0 2 AM EST 12/06/2018 10:13 AM EST Mili Cordova NP LAB BLOOD ORDERABLES Final Result Performing Organization Address [facility] Co de Phone Number [address] [address] * Folate (12/06/2018 10:02 AM EST) FOLIC ACID 12.3 4.2 - 19.9 ng/mL [facility] Blood 12/06/2018 10:0 2 AM EST 12/06/2018 10:13 AM EST Mili Cordova NP LAB BLOOD ORDERABLES Final Result Performing Organization Address [facility] Co de Phone Number [address] [address] * (ABNORMAL) Ferritin (12/06/2018 10:02 AM EST) FERRITIN 160(H) 13 - 150 ug/L [facility] Blood 12/06/2018 10:0 2 AM EST 12/06/2018 10:13 AM EST Mili Cordova NP LAB BLOOD ORDERABLES Final Result Performing Organization Address [facility]/ZIP Co de Phone Number [address] [address] * HCG (quantitative blood), (12/06/2018 10:02 AM EST) HCG BETA <0.1 mIU/mL [facility] Comment: Interpretation: FEMALE: Negative: Less than or equal to 1 mIU/mL. 4 Weeks Post Conception: 9.5 - 750 mIU/mL. 12 Weeks Post Conception: [address] - [address] mIU/mL. Blood 12/06/2018 10:0 2 AM EST 12/06/2018 10:13 AM EST Mili Cordova LABORATORY MACHINIST LAB BLOOD ORDERABLES Final Result Performing Organization Address City/[facility] Co de Phone Number [address] [address] * Iron (12/06/2018 10:02 AM EST) IRON 140 30 - 160 ug/dL [facility] Blood 12/06/2018 10:0 2 AM EST 12/06/2018 10:13 AM EST Mili Cordova LABORATORY MACHINIST LAB BLOOD ORDERABLES Final Result Performing Organization Address [facility] Co de Phone Number [address] [address] documented in this encounter Visit Diagnoses Diagnosis Eating disorder, unspecified- Primary documented in this encounter Additional Health Concerns Infection Onset Date Last Indicated Resolved Time CoV-Risk 02/19/2022 02/19/2022 03/02/2022 1:24 AM EDT documented as of this encounter Care Teams Financial Systems Manager Relationship Specialty Start Date End Date Pcp, Unknown PCP - General 02/19/22 documented as of this encounter Additional Source Comments The information contained in this document represents components of the legal health record. It is not the complete legal health record.[facility]
--- OUTSIDE RECORDS SUMMARY | 2025-06-20 11:20 | XMS_ITS | Encounter Summary ---
Author Organization [facility] Address [address] [place] [address] Phone Care Team Providers Care Supervisor Waterworks Name Role Phone Babita Botello MD Primary Care Provider [phone] Encounter Details Date Type Department Care Team (Late st Contact Info) Description 04/29/2017 Documentation EM Family Medicine [address] [place] [address] Family Medicine, Physician [address] [place], [place] [id number] Social History Tobacco Use Types Packs/Day Years [...] on filedocumented in this encounter Care Teams Supervisor Waterworks Relationship Specialty Start Date End Date Babita Botello MD [address] [place] [address] HARSHA Ortega [address] PCP - General 06/04/17 12/03/22 documented as of this encounter
--- OUTSIDE RECORDS SUMMARY | 2025-06-20 11:20 | XMS_ITS | Encounter Summary ---
Author Organization [facility] Address [address] [place] [address] Phone Care Team Providers Care Cma Name Role Phone Babita Botello MD Primary Care Provider [phone] Encounter Details Date Type Department Care Team (Late st Contact Info) Description 02/15/2017 Documentation EM Family Medicine [address] [place] [address] Family Medicine, Physician [address] [place], [place] [phone] Social History Tobacco Use Types Packs/Day Years [...] on filedocumented in this encounter Care Teams Cma Relationship Specialty Start Date End Date Babita Botello MD [address] [place] [address] HARSHA Ortega [address] PCP - General 06/04/17 12/03/22 documented as of this encounter
--- OUTSIDE RECORDS SUMMARY | 2025-06-20 11:20 | XMS_ITS | Clinical Summary ---
Author Organization [facility] Address [address] [place] [address] Phone Care Team Providers Care Supervisor Clam Bed Name Role Phone Physician, No Pcp Primary [...] patient's age to complete this topic Insurance [facility] [place] AUT[place] GENER[place] [facility] [address] [place] [address] Care Teams Supervisor Clam Bed Relationship Specialty Start Date End Date Physician, No Pcp PCP - General 12/19/24
--- OUTSIDE RECORDS SUMMARY | 2025-06-20 11:21 | XMS_ITS | Clinical Summary ---
Author Organization [facility] Address [address] [place] [address] Phone Care Team Providers Care Blunger Machine Operator Name Role Phone Unavailable Primary Care Provider [...] (10/28/2018 2:37 PM EST): On ocps per [facility] for heavy bleeding and iron [...] complete this topic Procedures * Due to [place] Fracture law, this organization might not be sharing sensitive test results. Procedure Name Priority Date/Time Associated Diagnosis Comments CHLAMYDIA AND GONORRHEA, AMPLIFIED Routine 10/28/2018 3:23 PM EST Screening examination for bacterial and spirochetal disease from Last 3 Months or Most Recently Relevant to Health Maintenance Results * Due to [place] Fracture law, this organization might not be sharing sensitive test results. * Chlamydia and Gonorrhea, Amplified (10/28/2018 3:23 PM EST) Chlamydia Trachomatis, DNA Probe NEGATIVE (NEG) [facility] Comment: No Chlamydia Trachomatis RNA detected in this patient's sample (REFERENCE RANGE/NORMAL VALUE: NOT DETECTED) Note: This test uses business administration instructor- mediated amplification method to detect rRNA from C. Trachomatis URINE GC AMP PROBE NEGATIVE (NEG) [facility] Comment: No Neisseria Gonorrhoeae RNA detected in this patient's sample (REFERENCE RANGE/NORMAL VALUE: NOT DETECTED) NOTE: This test uses business administration instructor-mediated amplification method to detect rRNA from N.Gonorrhoeae. [...] without risk of sexual abuse. Consult the [facility] if needed. Contact phone number . Therapeutic failure or success cannot be determined with the Aptima Combo2 assay since nucleic acid may persist following appropriate antimicrobial therapy. The Centers for Disease Control and Prevention (CDC) recommends confirmatory retesting using culture or a different nucleic acid amplification test when positive results occur, if indicated. Testing performed or reported by [facility], a Service of [facility], [facility] [place] [address] [place] [id number] Digna Perrin MD, Car Pusher Urine 10/28/2018 3:23 PM EST 10/28/2018 9:49 PM EST us Babita Botello MD LAB MICROBIOLOGY - GENERAL ORD ERABLES Final Result [facility] from Last 3 Months or Most Recently Relevant to Health Maintenance
--- OUTSIDE RECORDS SUMMARY | 2025-06-20 11:21 | XMS_ITS | Encounter Summary ---
Author Organization [facility] Address [address] [place] [address] Phone Care Team Providers Care Solution Maker Name Role Phone Babita Botello MD Primary Care Provider [phone] Encounter Details Date Type Department Care Team (Late st Contact Info) Description 08/12/2010 Documentation EM Family Medicine [address] [place] [address] Family Medicine, Physician [address] [place], [place] [phone] Social History Tobacco Use Types Packs/Day Years [...] on filedocumented in this encounter Care Teams Solution Maker Relationship Specialty Start Date End Date Babita Botello MD [address] [place] [address] HARSHA Ortega [phone] PCP - General 06/04/17 12/03/22 documented as of this encounter
== END 2025-06-20 10:29 | disposition home or self-care (01) ==
LOC: HO.US 10:28
PROVIDERS: PCP Hospitalist; Visit Provider Physician Assistant
DX: M79.662 Pain in left lower leg (principal)
CPT/HCPCS: 93971

== ENCOUNTER → 2025-06-20 10:30 | Outpatient (BNV) | payer OTHER, MEDICAID, SELFPAY | PROVIDERS: PCP Hospitalist; Visit Provider Radiology Diagnostic Radiology | DX: M79.605 Pain in left leg (principal) | CPT/HCPCS: 93971 ==